=== PATIENT | female | born 1985 | race Caucasian/White ===

== ENCOUNTER 2019-10-20 14:14 | Emergency (ER) | payer MEDICAID ==
[~2019-10-20] VITALS: Ht 172.7 cm; Wt 56.0 kg
[2019-10-20] MEDS ORDERED: ACETAMINOPHEN 325MG TABLET PO ONE (23:00)
[2019-10-20 23:30] VITALS: BP 110/70
== END 2019-10-20 23:31 | disposition home or self-care (01) ==
LOC: ER 14:14
DX: G43.909 Migraine, unspecified, not intractable, without status migrainosus (principal); G44.209 Tension-type headache, unspecified, not intractable; I10 Essential (primary) hypertension
CPT/HCPCS: 99282

== ENCOUNTER 2023-11-21 19:53 | Emergency (ER) | payer MEDICAID ==
[~2023-11-21] VITALS: Ht 165.1 cm; Wt 82.0 kg
[~2023-11-21 19:53] MED LIST: COR3 PO; FURO-151 MT; LEVO-65 MT; LOSA25TA26 MT; POTA-205 MT
[2023-11-21 20:00] VITALS: O2SAT 97
[2023-11-21 20:43] LABS: BASOPHILS % 0.6 % (0.0-2.0); EOSINOPHILS % 2.6 % (0.0-5.0); HEMOGLOBIN. 8.2 g/dL (12.0-16.0); MEAN CORPUSCULAR HEMOGLOBIN 27.2 pg (28.0-32.0); MEAN CORPUSCULAR HGB CONC 32.7 g/dL (31.0-37.0); MEAN CORPUSCULAR VOLUME 83.4 fL (81.0-99.0); MEAN PLATELET VOLUME 7.5 fl (7.4-10.4); NEUTROPHILS % 75.8 % (40.0-76.0); PLATELET 345 x1000/uL (130-400); WHITE BLOOD COUNT 4.8 x1000/uL (4.5-11.0)
[2023-11-21 20:56] LABS: ALANINE AMINOTRANSFERASE 12 IU/L (10-49); ALBUMIN 2.5 g/dL (3.2-4.8); ASPARTATE AMINOTRANSFERASE 32 IU/L (<34); BILIRUBIN TOTAL 0.4 mg/dL (0.1-1.0); CALCIUM 7.4 mg/dL (8.7-10.4); CARBON DIOXIDE 22 mEq/L (21-32); CHLORIDE 104 mEq/L (98-107); GLUCOSE 99 mg/dL (70-105); POTASSIUM 3.9 mEq/L (3.5-5.1); PROTEIN TOTAL 6.5 g/dL (6.0-8.3); SODIUM 134 mEq/L (136-145); TROPONIN I HIGH SENSITIVITY 19 ng/L (3.0-34); UREA NITROGEN BLOOD 27 mg/dL (9-23)
[2023-11-21 21:05] LABS: CREATININE 1.4 mg/dL (0.6-1.0)
[2023-11-21 21:12] VITALS: BP 102/64; PULSE 89; RESP 15; TEMP 98.1
[2023-11-21 23:33] LABS: TROPONIN I HIGH SENSITIVITY 19 ng/L (3.0-34)
[2023-11-22 01:27] LABS: TROPONIN I HIGH SENSITIVITY 17 ng/L (3.0-34)
== END 2023-11-22 02:13 | disposition home or self-care (01) ==
LOC: ER 19:53 → EDBEDREQ 21:03 → ER 11-22 02:13 → CANBEDREQ 11-22 09:53
DX: R07.9 Chest pain, unspecified (principal); E11.9 Type 2 diabetes mellitus without complications; I11.0 Hypertensive heart disease with heart failure; I50.9 Heart failure, unspecified
CPT/HCPCS: 36415; 71045; 80053; 83880; 84484; 85025; 99284